=== PATIENT | male | born 1955 | race Caucasian/White ===

== ENCOUNTER → 2019-07-26 | Day surgery (SDC) | payer OTHER ==
[~2019-07-26] MED LIST: ARGINAID POWDE1 EACH PO; ARTIFICIAL TEAR1510 OPHTHALMIC; COMBIGAN EYE DR10 ML OPHTHALMIC; CYMBALTA60 MG PO; FLONASE 0.05%50 MCG NARES; HUMALOG100 UNIT/1 SUBQ; IPRAT-ALBUT 0.5-3 ML INH; LANTUS SUBQ; LIPITOR 20 MG T20 M1 PO; LORATIDINE 10 M10 M1 PO; LUMIGAN5 ML OPHTHALMIC; METFORMIN HCL500 M3 PO; MIRALAX119 GM PO; MULTIVITAMINS1 EAC7 PO; NEURONTIN600 MG PO; NORCO 5-325 TA1 EAC1 PO; PEPCID20 MG PO; PRAZOSIN 1 MG CA1 M1 PO; PROTONIX40 M4 PO; SEROQUEL 50 MG50 M1 PO; TAMSULOSIN HCL0.4 MG PO; TYLENOL325 M1 PO; VITAMIN B-12250 MCG PO; ZESTRIL20 MG PO
[2019-07-26 11:22] LABS: HEMOGLOBIN 12.3 gm/dL (14.0-18.0); MCH 30.6 pg (26.0-34.0); MCHC 33.3 g/dL (28.0-37.0); RBC 4.02 mil/uL (4.50-6.00); RDW 13.5 % (10.5-14.5); WBC 7.9 thou/uL (4.0-11.0)
[2019-07-26 11:30] LABS: CALCIUM 9.6 mg/dL (8.5-10.1); POTASSIUM 4.1 mmol/L (3.5-5.1)
[2019-07-26 11:51] VITALS: BP 133/82
--- NOTE | 2019-07-26 17:21 | EKG ---
[address] [address] ELECTROCARDIOGRAM REPORT Name: NOLVIA BASS Room #: [facility].#: [id number] Admission: Attend Phys: Nickolas Walker MD Discharge: Date of : 51 Report #: [id number] THIS REPORT FOR: //name// [facility] Test Date: 2019-07-26 Test Time: 11:27:59 Pat Name: NOLVIA BASS Department: Room: Gender: Machinist/Machine Builder: ZEV : 1955 Requested By: Nickolas Walker Order Number: [id number] MD: Saurabh Gillette Measurements Intervals [place] Rate: 84 P: 244 RI: 130 QRS: 39 QRSD: 79 T: 36 QT: 363 QTc: 430 Interpretive Statements Ectopic atrial rhythm Consider anterior infarct No previous ECG available for comparison Electronically Signed On 07-26-2019 17:21:16 [employer] by Saurabh Gillette [email or web address] <ELECTRONICALLY SIGNED> By: Saurabh Gillette MD, [facility] 07/26/19 1721 [id number] [id number] Saurabh Gillette MD, FACC /EPI
--- NOTE | 2019-08-06 06:16 | O ---
[facility] [place] [address] OPERATIVE REPORT Name: NOLVIA BASS Room #: [facility].#: [id number] Admission: 07/26/19 Attend Phys: Nickolas Walker MD Discharge: Date of : 51 Report #: [id number] THIS REPORT FOR: //name// CC: DEMARCUS Reynolds M.D. 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 PROCEDURE: Left lower lid ectropion repair with transconjunctival left lower lid and cheek lift and full-thickness skin graft from right upper lid to right lower lid. SURGEON: Nickolas Walker MD. ROVING DEPARTMENT SUPERVISOR: None. ANESTHESIA: MAC. COMPLICATIONS: None. 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 He presents today for a left lower lid and cheek procedure in order to attempt to preserve his eye. Informed consent was obtained to include, but not limited to, the potential risk for loss of vision, bleeding, infection, failure to improve the problem, and the potential need for further surgery or treatment. DESCRIPTION OF PROCEDURE: The patient was taken to the operating room, where 2% Xylocaine with epinephrine mixed with equal parts of 0.75% Marcaine with Wydase was administered transcutaneously and transconjunctivally to the left lower lid, the left lateral canthus, the left medial canthus, the left cheek, the left infratemporal fossa, and the right upper lid. The patient was subsequently prepped and draped in the usual sterile fashion. The left lateral canthus was then clamped with the Núñez clamp, following which, a sharp canthotomy and cantholysis was performed. A tarsal strip was then prepared laterally, removing the lash bearing portion of the redundant lid margin and the redundant tarsal [address] [address] OPERATIVE REPORT Name: NOLVIA BASS Room #: [facility].#: [id number] Admission: 07/26/19 Attend Phys: Nickolas Walker MD Discharge: Date of : 51 Report #: [id number] plate. Hemostasis was then re-achieved. A transcutaneous incision was then made below the inferior border of the lashes across the width of the lid through the medial canthus. The dissection was carried down into the pre-malar space, primarily using sharp dissection. Hemostasis was then re-achieved. The lower lid and cheek tissues were then elevated and resuspended with interrupted 5-0 Prolene sutures from periosteum. The anterior lamellar defect in the left lower lid was then measured. It was thought to be adequate to take a blepharoplasty type incision from the right upper lid to get that tissue. The right upper lid was then outlined utilizing a fine-tipped skin marking pen to outline an upper lid crease. The Graefe forceps was then used to quantitate the redundant upper lid skin that could be removed. The incisions were then made with a Molly scissor and a skin muscle flap removed with a high-temp cautery. Hemostasis was achieved in that donor site with interrupted use of the monopolar cautery. The upper lid crease was then reformed with interrupted 6-0 chromic sutures. The skin was then closed with 6-0 plain gut sutures. That full thickness skin graft was then defatted. It was subsequently secured to its bed in the left lower lid with cardinal bites of 7-0 Vicryl suture. The tarsal strip was then resecured to the internal portion of the lateral orbital tubercle with interrupted 5-0 Prolene sutures. The subcutaneous structures and the skin over that incision were then closed with interrupted 6-0 plain gut sutures. The wounds were then cleaned and dressed with erythromycin ophthalmic ointment. The left side was dressed occlusively with layers of Telfa pad, two eye pads, and silk tape, it was held in place with Mastisol. The patient was subsequently transported to the recovery area, having tolerated the procedures well with no anesthetic or operative complications being noted. <ELECTRONICALLY SIGNED> By: Nickolas Walker MD 08/06/19 0616 [id number] Nickolas Walker MD /nt
== END | disposition home or self-care (01) ==
LOC: OR 10:32
PROVIDERS: Ophthalmology
DX: H02.105 Unspecified ectropion of left lower eyelid (principal); H02.535 Eyelid retraction left lower eyelid; H02.205 Unspecified lagophthalmos left lower eyelid; H18.9 Unspecified disorder of cornea; K21.9 Gastro-esophageal reflux disease without esophagitis; I10 Essential (primary) hypertension; E11.9 Type 2 diabetes mellitus without complications; E78.5 Hyperlipidemia, unspecified; F32.9 Major depressive disorder, single episode, unspecified; F17.210 Nicotine dependence, cigarettes, uncomplicated; Z98.890 Other specified postprocedural states; Z86.73 Personal history of transient ischemic attack (TIA), and cerebral infarction without residual deficits; Z79.899 Other long term (current) drug therapy; Z79.4 Long term (current) use of insulin
CPT/HCPCS: 50010; 50101; 50386; 50398; 51636; 56527; 56531; 62110; 62850; 70005